=== PATIENT | male | born 1965 | race Caucasian/White ===

== ENCOUNTER 2017-04-15 20:28 | Emergency (ER) | payer OTHER ==
[~2017-04-15] VITALS: Ht 177.8 cm; Wt 97.5 kg
[2017-04-15 20:37] VITALS: BP 122/77
--- NOTE | 2017-04-15 21:29 | RADIOLOGY REPORT ---
EXAMINATION: XR TIBIA AND FIBULA, RIGHT CLINICAL INFORMATION: Pain and swelling. Rule out foreign body. COMPARISON: None TECHNIQUE: AP and lateral views of the right tibia and fibula were obtained. FINDINGS: No radiopaque foreign body is seen within the soft tissues. No acute osseous abnormality is seen. The imaged knee joint appears normal. IMPRESSION: Normal plain film evaluation of the right lower leg.
--- NOTE | 2017-04-15 21:35 | ED UPPER/LOWER EXTREMITY COMPL ---
History of Present Illness General Chief Complaint: Laceration Procedure Stated Complaint: LAC? TO R LOWER LEG Source: patient Exam Limitations: no limitations Vital Signs & Intake/Output Vital Signs & Intake/Output Vital Signs Date Time Temp Pulse Resp B/P B/P Pulse O2 O2 Flow FiO2 Mean Ox Delivery Rate 04/15 2037 98.0 59 18 122/77 98 Room Air Allergies Coded Allergies: No Known Allergies (04/15/17) Reconcile Medications [baby aspirin] (Reported) Naproxen 500 MG TABLET 1 TAB PO BID PAIN CONTROL (Reported) Simvastatin (Simvastatin*) 40 MG TABLET 1 TAB PO QPM HIGH CHOLESTROL ( Reported) Triage Note: PRESENTS TO ED FOR EVALUATION OF RIGHT LOWER LEG POSSIBLE FOREIGN OBJECT. Triage Nurses Notes Reviewed? yes Onset: Abrupt Duration: constant Timing: single episode today Severity: mild Severity Numbers: 1 HPI: Patient is a 51-year-old male who presents emergency room saying that while weeding today he removed a wooden stick from the ground where it struck the right lateral aspect of his lower leg where he noted he had a puncture wound where he tried to remove the piece of wood however he believes that the would still remains. Tetanus is unknown (VICENTE GASTELUM) Past History Travel History Traveled to [place] past 21 day No Medical History Any Pertinent Medical History? none Surgical History Surgical History: non-contributory Psychosocial History What is your primary language Arabic Tobacco Use: Never used Family History Hx Contributory? No (VICENTE GASTELUM) Review of Systems Review of Systems Constitutional: Reports: no symptoms. EENTM: Reports: no symptoms. Respiratory: Reports: no symptoms. Cardiovascular: Reports: no symptoms. Gastrointestinal/Abdominal: Reports: no symptoms. Genitourinary: Reports: no symptoms. Musculoskeletal: Reports: see HPI. Skin: Reports: see HPI. Neurological/Psychological: Reports: no symptoms. Hematologic/Endocrine: Reports: no symptoms. Immunological: Reports: no symptoms. All Other Systems: Reviewed and Negative (VICENTE GASTELUM) Physical Exam Physical Exam General Appearance: no apparent distress, alert Head: atraumatic Eyes: Bilateral: normal appearance. Ears, Nose, Throat: hearing grossly normal Neck: normal inspection Back: normal inspection Neurologic/Tendon: normal sensation, normal motor functions Skin: normal color, warm/dry Diagram Legs Front/Back 1) Noted puncture wound approximately 2 mm in diameter. Noted superficial foreign body (VICENTE GASTELUM) Progress Differential Diagnosis: arterial insufficiency, compartment syndrome, contusion, dislocation, DVT, fracture, gout, septic arthritis, sprain, tendon injury, fb retention Plan of Care: Current Medications Sig/Jyoti Start time Last Medication Dose Stop Time Status Admin Tetanus/Diphtheria 0.5 ML ONCE ONE 04/15 2145 UNVr 04/15 Toxoids Adsorbed 04/15 (Decavac) PATIENT: PEE HAIRSTON PRESENT AGE: 51 PATIENT ACCOUNT NO: [id number] : 65 LOCATION: [facility] ORDERING PHYSICIAN: VICENTE GALICIA SERVICE DATE: 04/15/17 EXAM TYPE: RAD - [id number], RIGHT EXAMINATION: XR TIBIA AND FIBULA, RIGHT CLINICAL INFORMATION: Pain and swelling. Rule out foreign body. COMPARISON: None TECHNIQUE: AP and lateral views of the right tibia and fibula were obtained. FINDINGS: No radiopaque foreign body is seen within the soft tissues. No acute osseous abnormality is seen. The imaged knee joint appears normal. IMPRESSION: Normal plain film evaluation of the right lower leg. DICTATED BY: JENNIFER SOLITARIO MD DATE/TIME DICTATED:04/15/172123 CONSULTING SERVICES MANAGER:EILEEN 2 patient's right lower extremity there was concerns of retained subcutaneous foreign body and which using Betadine initially I injected 5 mL of 1% lidocaine to the puncture site wound. Using a Yvonne curved clamp I removed approximately a 3 mm piece of wood from the puncture wound site extensive inspection pursued with no concern at this time a foreign body on examination. I then used peroxide and water to clean the puncture wound site. Bacitracin bandage was applied. Patient was instructed that retention of foreign body may occur and if symptoms worsen to return to the emergency room and he will comply. (VICENTE GASTELUM) Departure Departure Disposition: HOME OR SELF CARE Condition: Stable Clinical Impression Primary Impression: Foreign body of leg, right, superficial Referrals: RUIZ DALEY,DARIELA Potts (PCP/Family) Additional Instructions: As discussed begin to apply bacitracin AND BANDAGE to the wound once a day for the following 4 days THEN LEAVE THE area dry and open. If you note signs of infection redness, pain, swelling, discharge return to the emergency room. Departure Forms: Customer Survey General Discharge Information (VICENTE GASTELUM) PA/IT ARCHITECTURE CONSULTANT Co-Sign Statement Statement: ED Attending supervision documentation- [] I saw and evaluated the patient. I have also reviewed all the pertinent lab results and diagnostic results. I agree with the findings and the plan of care as documented in the PA's/IT ARCHITECTURE CONSULTANT's documentation. [X] I have reviewed the ED Record and agree with the PA's/IT ARCHITECTURE CONSULTANT's documentation. [] Additions or exceptions (if any) to the PAs/IT ARCHITECTURE CONSULTANT's note and plan are summarized below: [] (SAMMY DALEY,JENNIFER Brunner)
[2017-04-15] MEDS ORDERED: SIMVASTATIN40 M1 PO (21:45)
[2017-04-15] MEDS ORDERED: baby aspirin (21:46)
[2017-04-15] MEDS ORDERED: NAPROXEN500 M2 PO (21:46)
== END 2017-04-15 21:50 ==
LOC: ERH 20:28
DX: S80.851A Superficial foreign body, right lower leg, initial encounter (principal); W45.8XXA Other foreign body or object entering through skin, initial encounter; Y93.H2 Activity, gardening and landscaping; Y92.9 Unspecified place or not applicable
CPT/HCPCS: 73590-RT; 90471; 90714